=== PATIENT | female | born 1995 | race African-American/Black ===

== ENCOUNTER 2022-02-06 16:00 | Inpatient (IN) | payer OTHER ==
[~2022-02-06] VITALS: Ht 170.2 cm; Wt 53.5 kg
[2022-02-06] MEDS ORDERED: IV NORMAL SALINE 1000ML BAG 1,000 ML IV SCH (16:45)
[2022-02-06] MEDS ORDERED: ACETAMINOPHEN 325 MG TABLET. PO PRN (16:45)
[2022-02-06] MEDS ORDERED: CALCIUM CARBONATE 500 MG TAB.CHEW PO PRN (16:45)
[2022-02-06] MEDS ORDERED: ELECTROLYTE (NON-ICU) PROTOCOL. MC PRN (16:45)
--- NOTE | 2022-02-06 18:07 | PDOC1 ---
History and Physical Date of Service: DOS: DATE: 02/06/22 TIME: 18:03 Chief Complaint: Chief Complain: N/V History of Present Illness: HPI: Patient is 26-year-old -[place] female presented to outside emergency room today due to nausea vomiting. Patient is approximately 7 weeks . Been having nausea vomiting for a few days. Unable to treat at home. Presentation outside hospital lipase little bit elevated ultrasound check could not establish if patient has pancreatitis. Per report ultrasound checked no pro blems with fetus. symptomatically treat no need for CT or x-ray especially given status. Management would not change if it did diagnose pancreatitis. Past Medical/Surgical History: PMH/PSH: Denies any past medical history Allergies: Allergies: Coded Allergies: No Known Drug Allergies (Unverified , 02/06/22) Family History: Family History: Patient denies knowing Social History: Social History: Denies alcohol tobacco drug use Current Medications: Current Medications Current Medications Sodium Chloride 1,000 ml @ 100 mls/hr Q10H IV Last administered on 02/06/22at 17:49; Start 02/06/22 at 16:45; Stop 02/07/22 at 02:44 Ondansetron HCl (Zofran) 4 mg PRN Q6HRS PRN IVP NAUSEA/VOMITING; Start 02/06/22 at 16:45 Calcium Carbonate/ Glycine (Tums) 500 mg PRN Q3HRS PRN PO UPSET STOMACH; Start 02/06/22 at 16:45 Info (Non-Icu Electrolyte Protocol) 1 ea PRN DAILY PRN MC SEE COMMENTS; Start 02/06/22 at 16:45 Acetaminophen (Tylenol) 650 mg PRN Q6HRS PRN PO Headaches, Temp > 101.5F; Start 02/06/22 at 16:45 Senna/Docusate Sodium (Senna Plus) 1 tab BID PO ; Start 02/06/22 at 21:00 ROS: Review of Systems Review of System Unless noted in HPI 14 point review of systems was negative Physical Exam: Physcial Exam: GEN: No apparent distress. Alert and oriented HEENT: Normal cephalic, atraumatic, external auditory canals are patent EYES: Extraocular muscles are intact, pupil are equally round and reactive to light and accommodation MUSCULOSKELETAL: Well developed , well nourished, good range of motion ENDOCRINE: No thyromegaly was palpated LYMPHATICS: No cervical chain or axillary nodes were noted HEMATOPOIETIC: No bruising NECK: Supple, no JVD, no thyromegaly was noted LUNGS: Clear to auscultation in all lung ching without rhonchi or wheezing HEART: RRR, S!, S2 present. Peripheral pulses intact, no obvious murmurs noted ABDOMEN: Soft, nontender. Positive bowel sounds, no organomegaly, normal bowel sounds EXTREMITIES: Without clubbing, cyanosis, or edema. Pedal pulses intact. Negative Homans sign NEUROLOGIC: Normal speech and tone. A&O x 3, moves all extremities, no obvious focal deficits PSYCHIATRIC: Normal affect, normal mood. Stable SKIN: No ulcerations or rashes, good skin turgor, no jaundice VASCULAR: Good capillary refill, neurovascular bundle appears to be intact Assessment/Plan Assessment/Plan Nausea vomiting, possible pancreatitis, 7 to 8-week -Presented outside hospital day history nausea vomiting. Concern for pancreatitis transferred here -Provide fluids advance diet as tolerated -No need for Ob consult in my mind at this point -No apparent reason for antibiotics. -Monitor overnight can likely discharge in the morning Justifications for Admission Other Justification ABEL PORRAS MD Feb 06, 2022 18:07
[2022-02-06] MEDS: ONDANSETRON PF 4 MG/2 ML VIAL. IVP PRN (19:20)
[2022-02-06 19:35] VITALS: BP 114/50
[2022-02-06] MEDS: SENNOSIDES/DOCUSATE 8.6/50MG TABLET. PO SCH (20:36)
[2022-02-06 23:18] VITALS: BP 114/55
[2022-02-07 02:19] VITALS: BP 112/60
[2022-02-07 07:00] VITALS: BP 103/52
[2022-02-07] MEDS: ONDANSETRON PF 4 MG/2 ML VIAL. IVP PRN ×2 (08:14→14:43)
[2022-02-07] MEDS: SENNOSIDES/DOCUSATE 8.6/50MG TABLET. PO SCH ×2 (08:16→20:50)
--- NOTE | 2022-02-07 10:28 | PDOC ---
[facility] PROGRESS NOTE Date of Service DOS: DATE: 02/07/22 TIME: 10:26 Chief Complaint Chief Complaint Assessment/Plan Nausea vomiting, possible pancreatitis, 7 to 8-week -Presented outside hospital day history nausea vomiting. Concern for pancreatitis transferred here -Provide fluids advance diet as tolerated -No need for Ob consult in my mind at this point -No apparent reason for antibiotics. -Monitor overnight can likely discharge in the morning History of Present Illness History of Present Illness 26-year-old -[place] female presented to outside emergency room today due to nausea vomiting. Patient is approximately 7 weeks . Been having nausea vomiting for a few days. Unable to treat at home. Presentation outside hospital lipase little bit elevated ultrasound check could not establish if patient has pancreatitis. Per report ultrasound checked no problems with fetus. symptomatically treat no need for CT or x-ray especially given status. Management would not change if it did diagnose pancreatitis. 02/07/2022 Patient seen examined this morning. Patient had trouble with breakfast and vomited afterwards. Denies any abdominal pain. No Zofran given. Zofran IV and p.o. prescribed. We will see how patient tolerates with lunch and possible discharge afterwards. Patient's chart, labs, images were reviewed and discussed with RN Vitals/I&O Vitals/I&O: Vital Signs Date Time Temp Pulse Resp B/P (MAP) Pulse Ox O2 Delivery O2 Flow Rate FiO2 02/07/22 08:00 Room Air 02/07/22 07:00 97.6 66 14 103/52 (69) 98 97.6 I & O 02/06/22 02/06/22 02/07/22 15:00 23:00 07:00 Intake Total 240 ml Balance 240 ml Physical Exam General: Alert, Oriented X3, Cooperative Heart: Regular rate Lungs: Clear Abdomen: Normal bowel sounds Extremities: No clubbing Skin: No rashes Comment Review of Relevant I have reviewed the following items mauro (where applicable) has been applied. Medications: Current Medications Medications (Trade) Dose Ordered Sig/Denis Route PRN Reason Start Time Stop Time Status Last Admin Dose Admin Sodium Chloride 1,000 ml @ 100 mls/hr Q10H IV 02/06/22 16:45 02/07/22 02:44 DC 02/06/22 17:49 Ondansetron HCl (Zofran) 4 mg PRN Q6HRS PRN IVP NAUSEA/VOMITING 02/06/22 16:45 02/07/22 08:14 Senna/Docusate Sodium (Senna Plus) 1 tab BID PO 02/06/22 21:00 02/06/22 20:36 Justifications for Admission Other Justification JESSEE ADAM MD Feb 07, 2022 10:28
[2022-02-07] MEDS ORDERED: ONDANSETRON ODT 4 MG TAB.RAPDIS. PO PRN (10:30)
[2022-02-07] MEDS ORDERED: ONDANSETRON PF 4 MG/2 ML VIAL. IVP PRN (10:30)
[2022-02-07 11:00] VITALS: BP 111/53
--- NOTE | 2022-02-07 11:40 | NUR ---
SW following. Discussed with RN, pt from home, room air, full liquid diet. Possible discharge after lunch. RN advised no SW needs at this time. SW will continue to follow.
[2022-02-07 15:00] VITALS: BP 114/39
[2022-02-07 19:00] VITALS: BP 116/54
[2022-02-07] MEDS: PROCHLORPERAZINE 10 MG/2 ML VIAL. IV PRN (19:37)
[2022-02-07 23:00] VITALS: BP 110/57
[2022-02-08 07:00] VITALS: BP 111/46
[2022-02-08] MEDS: PROCHLORPERAZINE 10 MG/2 ML VIAL. IV PRN (07:31)
[2022-02-08] MEDS: SENNOSIDES/DOCUSATE 8.6/50MG TABLET. PO SCH (07:32)
[2022-02-08] MEDS ORDERED: PROC10TA57 PO (09:51)
--- NOTE | 2022-02-08 10:15 | PDOC3 ---
[facility]-Discharge Summary Date of Admission: Date of Admission: Feb 06, 2022 Date of Discharge: Date of Discharge: Feb 08, 2022 Admission Diagnosis: Problems: (1) Nausea & vomiting Hospital Course: Hospital Course: Assessment/Plan Nausea vomiting, possible pancreatitis, 7 to 8-week -Presented outside hospital day history nausea vomiting. Concern for pancreatitis transferred here -Provide fluids advance diet as tolerated -No need for Ob consult in my mind at this point -No apparent reason for antibiotics. -Monitor overnight can likely discharge in the morning History of Present Illness History of Present Illness 26-year-old -[place] female presented to outside emergency room today due to nausea vomiting. Patient is approximately 7 weeks . Been having nausea vomiting for a few days. Unable to treat at home. Presentation outside hospital lipase little bit elevated ultrasound check could not establish if patient has pancreatitis. Per report ultrasound checked no problems with fetus. symptomatically treat no need for CT or x-ray especially gi patrick status. Management would not change if it did diagnose pancreatitis. 02/07/2022 Patient seen examined this morning. Patient had trouble with breakfast and vomited afterwards. Denies any abdominal pain. No Zofran given. Zofran IV and p.o. prescribed. We will see how patient tolerates with lunch and possible discharge afterwards. Patient's chart, labs, images were reviewed and discussed with RN 02/08 Patient evaluated examined at bedside. Says feeling much better doing well with transition to Compazine. Tolerating oral intake. Okay to discharge home today. Greater than 30 minutes spent on this discharge. Disposition: Disposition/Orders: D/C to Home Activity: Activity: Resume previous activity Diet: Diet: other (adat) Medications: Home Meds Active Scripts Prochlorperazine Maleate (Compazine) 10 Mg Tablet, 1 TAB PO Q6HRS for N/V for 7 Days, #28 TAB 0 Refills Prov:ABEL PORRAS MD 02/08/22 Scheduled Prochlorperazine Maleate (Compazine), 1 TAB PO Q6HRS Justicifation of Admission Dx: Justifications for Admission: Justification of Admission Dx: Yes (n/v) ABEL PORRAS MD Feb 08, 2022 10:15
--- NOTE | 2022-02-08 10:34 | NUR ---
SW following. Discussed with RN, discharge order for home with self care. RN advised no SW needs.
[2022-02-08 10:55] VITALS: BP 107/48
--- NOTE | 2022-02-08 13:45 | NUR ---
1235 pt discharged to home. taken out by wheelchair.
== END 2022-02-08 12:35 | disposition home or self-care (01) | DRG 440 ==
LOC: 4 NORTH 16:00
PROVIDERS: ADMIT Student in an Organized Health Care Education/Training Program; ATTEND Student in an Organized Health Care Education/Training Program
DX: K85.90 Acute pancreatitis without necrosis or infection, unspecified (principal); O99.611 Diseases of the digestive system complicating pregnancy, first trimester; O21.9 Vomiting of pregnancy, unspecified; Z3A.01 Less than 8 weeks gestation of pregnancy
CPT/HCPCS: 36415; 83690; J0780; J2405; J7030; G0378